=== PATIENT | female | born 1975 | race Caucasian/White ===

== ENCOUNTER 2016-12-16 02:38 | Emergency (ER) | payer OTHER ==
[~2016-12-16] VITALS: Ht 165.1 cm; Wt 113.6 kg
[~2016-12-16 02:38] MED LIST: ESTR0.5T PO; OXYC1TAB24 PO
[2016-12-16 02:41] VITALS: BP 182/108; PULSE 69; RESP 18; O2SAT 95
--- NOTE | 2016-12-16 02:51 | ED.REPORT ---
HPI-Abd Pain F 40 and Over Date of Service Dec 16, 2016 ED Provider: Marek Canela MD Patient is a 41 year old female who presents to the ED due to diarrhea onset four days ago. She c/o associated vomiting, chills, diaphoresis, and brief abdominal pain that has since subsided. Pt woke up in the middle of the night due to a burning sensation in the middle of her chest that persisted for several hours. She described the pain as, "an uncomfortable feeling in my chest. " She does not usually get acid reflux. 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 Pt denies hematochezia. Nursing Notes Stated Complaint: CHEST DISCOMFORT Chief Complaint: Female Abdominal Pain Nursing Notes Reviewed: Yes Allergies: Uncoded Allergies: FOODS (Adverse Reaction, Severe, AVACADO,BANANA,CANTOLOUPE, 05/01/16) AVACADO-SNEEZING, RUNNY NOSE & EYES BANANA-ITCHY MOUTH CANTOLOUPE-ITCHY MOUTH Scheduled Estradiol (Estradiol) 0.5 Mg Tablet 0 PO DAILY Scheduled PRN oxyCODONE-Acetaminophen 5-325 mg (oxyCODONE-Acetaminophen 5-325 mg) 1 Each Tablet 1 TAB PO TID PRN PRN For Pain General Time Seen by MD: 02:50 Chief Complaint Diarrhea mild Hx Obtained From: Patient Arrived By: Walk-in Sudden in Onset?: Yes Onset Occurred: 4 days ago Symptom Duration: Since onset Progression since Onset: Intermittent Severity: Current: No pain currently Past Medical History Past Surgical History 04/2015 Reports: Cholecystectomy, Hysterectomy Smoking History Former Smoker Social History 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 Skin: Reports Diaphoresis Physical Exam Vital Signs Vital Signs (First) Date Time Temp Pulse Resp B/P Pulse Ox O2 Delivery O2 Flow Rate FiO2 12/16/16 02:41 36.3 69 18 182/108 95 Room Air Initial VS: Reviewed, Vital signs abnormal Head / Eyes: Atraumatic, Normocephalic, PERRL ENT: Mucous membranes moist, Conjunctiva normal, No scleral icterus Neck: Supple, Non-tender, Full range of motion Skin: Warm, Dry, No cyanosis Neurologic: Alert, Oriented, Nonfocal Psychiatric: Mood/affect normal, Behavior normal, Normal thought content General/Constitutional: Awake, Alert, No acute distress, Well appearing, Well developed, Well hydrated, Well nourished, Cooperative Respiratory / Chest: Atraumatic, Breath sounds NL, Breath sounds = bilat, No respiratory distress, No rales, No rhonchi, No wheezing, No retractions Cardiovascular: Heart rate NL, Regular rhythm, Heart sounds NL, No gallop, No murmurs, No rubs Abdomen: Atraumatic, Soft, Non-tender, No guarding, No rebound, BS normoactive Back: Atraumatic, Inspection NL, Full range of motion, Painless range of motion , Non-tender, No midline vertebral tend, No CVA tenderness Lower Extremity / Pelvis / MS: Atraumatic, Inspection NL, Full range of motion , No swelling restless legs Interpretation & Diagnostics Lab Results Interpretation Test 12/16/16 03:15 Hold Urine Received (Received) Re-Eval/Medical Decision Med Decision/Clinical Course 41-year-old female with over 1 week of diarrhea. She works in a health care setting. Stool was sent for gastrointestinal PCR. We will contact her with results later today. Imodium as needed. Re-Evaluation/Progress : Time of Eval: 05:28 Patient Status: Condition unchanged Re-Evaluation/Progress Note: Pt rechecked. Pt understands and agrees with the treatment plan. Will call her with results of stool sample. Counseled Regarding: Diagnosis, Lab results, Need for follow-up, When/why to return to ED Discharge & Departure Primary Impression: Diarrhea Disposition: Home Discharge Condition All VS Reviewed: Yes Condition: Stable Patient Instructions: Acute Diarrhea (ED) Additional Instructions: We will contact you later today with the results of your stool PCR testing and any recommendations for treatment. Use Imodium as needed for diarrhea. Hand washing!!! Referrals: [facility] (PCP) Scribe Attestation Portions of this note were transcribed by Dalia Dia. I, Dr. Canela personally performed the history, physical exam and medical decision-making; I reviewed and confirmed the accuracy of the information in the transcribed note. Signed by: Nataliia Louis, 12/16/16 0601 Marek Canela MD Dec 16, 2016 02:51 DALIA DIA Dec 16, 2016 03:42
[2016-12-16 06:01] VITALS: BP 164/98; PULSE 72; RESP 18; O2SAT 96
== END 2016-12-16 06:01 | disposition home or self-care (01) ==
LOC: SED 02:38
DX: R19.7 Diarrhea, unspecified (principal); R11.10 Vomiting, unspecified; R68.83 Chills (without fever); R61 Generalized hyperhidrosis; R10.9 Unspecified abdominal pain; R07.9 Chest pain, unspecified; Z87.891 Personal history of nicotine dependence